=== PATIENT | female | born 1950 | race Two or more races ===

== ENCOUNTER 2020-09-11 10:37 | Outpatient (CLI) | payer OTHER | END 2020-09-11 10:45 | disposition home or self-care (01) | LOC: LAB 10:37 | PROVIDERS: ATTEND Orthopaedic Surgery | DX: D64.89 Other specified anemias (principal); D68.8 Other specified coagulation defects; N39.0 Urinary tract infection, site not specified; E11.9 Type 2 diabetes mellitus without complications; E03.8 Other specified hypothyroidism; E83.42 Hypomagnesemia; E88.89 Other specified metabolic disorders; I49.8 Other specified cardiac arrhythmias; Z76.89 Persons encountering health services in other specified circumstances; B95.62 Methicillin resistant Staphylococcus aureus infection as the cause of diseases classified elsewhere; M25.571 Pain in right ankle and joints of right foot; M79.671 Pain in right foot ==

== ENCOUNTER → 2020-10-16 10:14 | Outpatient (CLI) | payer OTHER ==
[~2020-10-16 10:14] MED LIST: GABAPEN; HYDROCHLOROTHIA25 MG PO; REQUIP XL2 MG PO; TIROSINT112 MCG PO; TOPROL XL25 M1 PO
== END | disposition home or self-care (01) ==
LOC: LAB 10:14
PROVIDERS: ATTEND Orthopaedic Surgery
DX: D68.8 Other specified coagulation defects (principal); N39.0 Urinary tract infection, site not specified; M81.8 Other osteoporosis without current pathological fracture; E56.1 Deficiency of vitamin K; E55.9 Vitamin D deficiency, unspecified; M85.9 Disorder of bone density and structure, unspecified; E21.3 Hyperparathyroidism, unspecified; Z22.322 Carrier or suspected carrier of Methicillin resistant Staphylococcus aureus; E03.9 Hypothyroidism, unspecified; E11.9 Type 2 diabetes mellitus without complications; D64.9 Anemia, unspecified; I10 Essential (primary) hypertension

== ENCOUNTER 2020-11-03 10:09 | Day surgery (SDC) | payer OTHER | END 2020-11-03 22:00 | disposition home or self-care (01) | LOC: CIR.AMB 10:09 | PROVIDERS: ATTEND Orthopaedic Surgery | DX: M21.41 Flat foot [pes planus] (acquired), right foot (principal); M76.821 Posterior tibial tendinitis, right leg; Z20.822 Contact with and (suspected) exposure to COVID-19 | CPT/HCPCS: 28300; 20902; 27685; 27695; 28238; C1776 ==

== ENCOUNTER 2022-10-25 09:56 | Outpatient (CLI) | payer OTHER | END 2022-10-25 10:04 | disposition home or self-care (01) | LOC: RX STUDY 09:56 | DX: R13.14 Dysphagia, pharyngoesophageal phase (principal) ==